=== PATIENT | male | born 1980 | race Two or more races ===

== ENCOUNTER 2019-08-25 19:23 | Emergency (ER) | payer SELFPAY ==
[~2019-08-25] VITALS: Ht 193 cm; Wt 95.3 kg
[2019-08-25 19:23] VITALS: BP 139/86
--- NOTE | 2019-08-25 19:23 | NUR ---
C/O SOB X1 DAY, pt to bed 6, aaox4, vss, nad noted, pending md bearden
--- NOTE | 2019-08-25 19:50 | NUR ---
[employer] AT BEDSIDE FOR XRAY.
[2019-08-25] MEDS ORDERED: ALBUTEROL SULFATE INH 18 GM HFA.AER.AD IH PRN (20:00)
--- NOTE | 2019-08-25 20:23 | NUR ---
Patient eloped from facility. ER MD notified.
== END 2019-08-25 20:25 | disposition left against medical advice (07) ==
LOC: ER 19:25
DX: R06.02 Shortness of breath (principal); R07.89 Other chest pain; J45.909 Unspecified asthma, uncomplicated
CPT/HCPCS: 71045-TC